=== PATIENT | female | born 1935 | race Two or more races ===

== ENCOUNTER 2019-03-28 06:28 | Emergency (ER) | payer MEDICARE, OTHER ==
[~2019-03-28] VITALS: Ht 147.3 cm; Wt 85.0 kg
--- NOTE | 2019-03-28 06:55 | NUR ---
REPORT RECIEVED FROM JAVIER, PATIENT RESTING COMFORTABLE. NOT IN DISTRESS
[2019-03-28] MEDS ORDERED: MORPHINE SULFATE 4 MG/ML, 1ML IVPush PRN (07:30)
[2019-03-28] MEDS ORDERED: SODIUM CHLORIDE FLUSH 10ML SYR IVF ONE (07:30)
[2019-03-28] MEDS ORDERED: ONDANSETRON 2MG/ML, 2ML IVPush ONE (07:30)
[2019-03-28 07:35] LABS: BASOPHILS # (AUTO) 0.04 x10^3/uL (0-0.1); BASOPHILS % (AUTO) 1 % (0-1); EOSINOPHILS # (AUTO) 0.26 x10^3/uL (0-0.4); EOSINOPHILS % (AUTO) 5 % (1-7); LYMPHOCYTES # (AUTO) 1.78 x10^3/uL (1-3.4); LYMPHOCYTES % (AUTO) 31 % (22-44); MD NO; MEAN CORPUSCULAR HEMOGLOBIN 27.3 pg (27.0-34.8); MEAN CORPUSCULAR HGB CONC 31.5 g/dL (32.4-35.8); MEAN CORPUSCULAR VOLUME 86.6 fL (80-100); MEAN PLATELET VOLUME 8.5 fL (7.4-10.4); MONOCYTES % (AUTO) 10 % (2-9); NEUTROPHILS # (AUTO) 3.12 x10^3/uL (1.8-6.8); NEUTROPHILS % (AUTO) 54 % (42-75); PLATELET COUNT 227 x10^3/uL (130-400); RED BLOOD COUNT 3.87 x10^6/uL (3.82-5.3); RED CELL DISTRIBUTION WIDTH 15.7 % (9.6-15.2)
[2019-03-28 07:47] LABS: ALBUMIN 3.4 g/dL (3.4-5.0); ANION GAP 5 mmol/L (5-15); CHLORIDE 110 mmol/L (98-107); CREATININE 1.78 mg/dL (0.55-1.02)
[2019-03-28] MEDS ORDERED: MORPHINE SULFATE 4 MG/ML, 1ML ONE (07:49)
[2019-03-28 07:50] LABS: TROPONIN I < 0.015 ng/mL (0.000-0.045)
[2019-03-28] MEDS ORDERED: ONDANSETRON 2MG/ML, 2ML ONE (07:50)
[2019-03-28 07:52] LABS: MICROSCOPIC NOT IND
[2019-03-28 08:01] LABS: CULTURE INDICATED? NO
--- NOTE | 2019-03-28 08:22 | NUR ---
PT BACK FROM IMAGING. MEDICATED FOR PAIN, MONITOR APPLIED. PT RESTING COMFORTABLE. VS STABLE
--- NOTE | 2019-03-28 08:31 | NUR ---
PLACED ON 2L O2, DESAT TO 89 WHILE SLEEPING, NOW 95% ON 2L. PAIN IS RELIEVED W MEDICATION. 12/04 PAIN. WILL CONTINUE TO MONITOR
[2019-03-28 09:23] VITALS: BP 120/80
--- NOTE | 2019-03-28 09:24 | NUR ---
Patient/Caregiver given discharge instructions and they have confirmed that they understand the instructions. Patient ambulatory with steady gait. IV and monitor removed
== END 2019-03-28 09:46 | disposition home or self-care (01) ==
LOC: ED 09:28
DX: S32.018A Other fracture of first lumbar vertebra, initial encounter for closed fracture (principal); M51.36 Other intervertebral disc degeneration, lumbar region; R60.0 Localized edema; W00.0XXA Fall on same level due to ice and snow, initial encounter; Y93.89 Activity, other specified; Y92.89 Other specified places as the place of occurrence of the external cause; Y99.8 Other external cause status
CPT/HCPCS: 36415; 71046; 72110; 80048; 81003; 82040; 83880; 84484; 85025; 93005; 96374; 96375; 99284; J2270; J2405